=== PATIENT | male | born 1960 | race Hispanic/Latino ===

== ENCOUNTER 2016-12-28 13:36 | Emergency (ER) | payer SELFPAY ==
[2016-12-28] MEDS ORDERED: CLINDAMYCIN 600 MG/4 ML VIAL ONE (14:49)
== END 2016-12-28 15:32 | disposition home or self-care (01) ==
LOC: ER 13:50
DX: K02.9 Dental caries, unspecified (principal); K04.7 Periapical abscess without sinus
CPT/HCPCS: 96372